=== PATIENT | male | born 2000 | race American Indian/Alaskan Native ===

== ENCOUNTER 2021-06-14 18:53 | Emergency (ER) | payer SELFPAY ==
[2021-06-14] MEDS ORDERED: ACETAMINOPHEN 500 MG TAB PO ONE (19:16)
[2021-06-14] MEDS ORDERED: dexAMETHasone 20 MG/5 ML VIAL IM ONE (21:14)
[2021-06-14] MEDS ORDERED: AMOXICILLIN/K CLAV 875/125MG TAB PO ONE (21:14)
--- NOTE | 2021-06-14 21:24 | Emergency Department Report ---
ED General Adult HPI - General Chief complaint: Sore Throat Stated complaint: SWOLLEN TONSILS Time Seen by Provider: 06/14/21 21:11 Source: patient Mode of arrival: Ambulatory Limitations: No Limitations - History of Present Illness Initial comments: Patient 21-year-old male who presents with sore throat x1 week now with fever sinus pain and pressure. Pain is described as 5/10 burning exacerbated by swallowing pain relieved by nothing tried. Patient is swallowing and tolerating p.o. There is no stridor or wheezing. Severity scale (0 -10): 3 - Related Data Previous Rx's Medication Instructions Recorded Last Taken Type Amoxicillin/Potassium Clav 1 each PO BID 7 Days #14 tablet 06/14/21 Unknown Rx [Augmentin 875-125 Tablet] Benzocaine/Mentho [Cepacol X 1 each MM Q4H PRN #3 packet 06/14/21 Unknown Rx Strength] Ibuprofen [Motrin 800 MG tab] 800 mg PO Q8HR PRN #30 tablet 06/14/21 Unknown Rx dexAMETHasone [Decadron] 4 mg PO Q12H 5 Days #10 tablet 06/14/21 Unknown Rx Allergies Allergy/AdvReac Type Severity Reaction Status Date / Time No Known Allergies Allergy Verified 06/14/21 21:12 ED Review of Systems ROS: Stated complaint: SWOLLEN TONSILS Other details as noted in HPI Constitutional: chills, fever, malaise Eyes: denies: eye pain, eye discharge, vision change ENT: throat pain, congestion. denies: ear pain Respiratory: denies: cough, shortness of breath, wheezing Cardiovascular: denies: chest pain, palpitations Endocrine: no symptoms reported Gastrointestinal: as per HPI. denies: abdominal pain, nausea, vomiting Genitourinary: denies: urgency, dysuria Musculoskeletal: denies: back pain, joint swelling, arthralgia Skin: denies: rash, lesions Neurological: denies: headache, weakness, paresthesias Psychiatric: denies: anxiety, depression Hematological/Lymphatic: denies: easy bleeding, easy bruising ED Past Medical Hx - Past Medical History Previous Medical History?: No - Surgical History Past Surgical History?: No - Medications Home Medications: Home Medications Medication Instructions Recorded Confirmed Last Taken Type Amoxicillin/Potassium Clav 1 each PO BID 7 Days #14 tablet 06/14/21 Unknown Rx [Augmentin 875-125 Tablet] Benzocaine/Mentho [Cepacol X 1 each MM Q4H PRN #3 packet 06/14/21 Unknown Rx Strength] Ibuprofen [Motrin 800 MG tab] 800 mg PO Q8HR PRN #30 tablet 06/14/21 Unknown Rx dexAMETHasone [Decadron] 4 mg PO Q12H 5 Days #10 tablet 06/14/21 Unknown Rx ED Physical Exam - General Limitations: No Limitations General appearance: alert, in no apparent distress - Head Head exam: Present: atraumatic, normocephalic - Eye Eye exam: Present: PERRL, EOMI. Absent: conjunctival injection, nystagmus Pupils: Present: normal accommodation - ENT ENT exam: Present: mucous membranes moist - Expanded ENT Exam Expanded Ear exam: Present: normal external inspection TM/Canal exam: Erythema: Right TM, Left TM Mouth exam: Absent: trismus Throat exam: Positive: tonsillar erythema, tonsillomegaly, tonsillar exudate, other (Uvula remains midline there is no peritonsillar abscess.). Negative: R peritonsillar mass, L peritonsillar mass - Neck Neck exam: Present: normal inspection, full ROM, lymphadenopathy. Absent: tenderness, meningismus, thyromegaly - Respiratory Respiratory exam: Present: normal lung sounds bilaterally. Absent: respiratory distress, wheezes, stridor, chest wall tenderness - Cardiovascular Cardiovascular Exam: Present: regular rate, normal rhythm, normal heart sounds. Absent: systolic murmur, diastolic murmur, rubs, gallop - GI/Abdominal GI/Abdominal exam: Present: soft, normal bowel sounds. Absent: distended, tenderness, bruit, hernia - Rectal Rectal exam: Present: deferred - Extremities Exam Extremities exam: Present: normal inspection, full ROM. Absent: tenderness - Back Exam Back exam: Present: normal inspection, full ROM. Absent: CVA tenderness (R), CVA tenderness (L) - Neurological Exam Neurological exam: Present: alert, oriented X3, CN II-XII intact, normal gait - Psychiatric Psychiatric exam: Present: normal affect, normal mood - Skin Skin exam: Present: warm, dry, intact, normal color. Absent: rash ED Course Vital Signs 06/14/21 19:14 Temperature 102.9 F H Pulse Rate 114 H Respiratory 18 Rate Blood Pressure 124/68 O2 Sat by Pulse 100 Oximetry ED Medical Decision Making - Medical Decision Making Patient advises he can no longer wait. However exam is consistent with sinusitis and pharyngitis with exudate. Airway is patent there is no stridor, there is no peritonsillar abscess plan DC to home with prescriptions. Follow-up with primary care doctor in 2 to 3 days. Return to emergency should symptoms worsen. Patient verbalized agreement and understanding with discharge plan. Patient DC'd home in stable condition at this time. Patient is tolerating p.o. intake at this time O2 sat is 99% on room air. Fever is improved. Critical care attestation.: If time is entered above; I have spent that time in minutes in the direct care of this critically ill patient, excluding procedure time. ED Disposition Clinical Impression: Sinusitis Qualifiers: Sinusitis location: maxillary Chronicity: acute Recurrence: non-recurrent Qualified Code(s): J01.00 - Acute maxillary sinusitis, unspecified Pharyngitis Qualifiers: Pharyngitis/tonsillitis etiology: unspecified etiology Qualified Code(s): J02.9 - Acute pharyngitis, unspecified Disposition: 01 HOME / SELF CARE / HOMELESS Is pt being admited?: No Does the pt Need Aspirin: No Condition: Stable Instructions: Sinusitis, Adult, [id number], Sore Throat, [id number] Additional Instructions: Take medications as prescribed, hydrate as directed, follow-up with your doctor in 2 to 3 days. Return to emergency should symptoms worsen. Prescriptions: Amoxicillin/Potassium Clav [Augmentin 875-125 Tablet] 1 each PO BID 7 Days #14 tablet Benzocaine/Mentho [Cepacol X Strength] 1 each MM Q4H PRN #3 packet PRN Reason: Throat Pain dexAMETHasone [Decadron] 4 mg PO Q12H 5 Days #10 tablet Ibuprofen [Motrin 800 MG tab] 800 mg PO Q8HR PRN #30 tablet PRN Reason: pain fever Referrals: PRIMARY CAREMD [Primary Care Provider] - 3-5 Days TEJA SANTORO MD [Staff Physician] - 3-5 Days Forms: Work/School Release Form(ED) Time of Disposition: 21:58
[2021-06-14 22:24] VITALS: BP 103/72
== END 2021-06-14 22:24 | disposition home or self-care (01) ==
LOC: ED 18:53
DX: J32.9 Chronic sinusitis, unspecified (principal); J02.9 Acute pharyngitis, unspecified; Z79.899 Other long term (current) drug therapy
CPT/HCPCS: 96372; 99282; J1100

== ENCOUNTER 2021-06-28 12:01 | Emergency (ER) | payer SELFPAY ==
--- NOTE | 2021-06-28 13:42 | Emergency Department Report ---
ED General Adult HPI - General Chief complaint: Sore Throat Stated complaint: SORE THROAT Time Seen by Provider: 06/28/21 13:15 Source: patient Mode of arrival: Ambulatory Limitations: No Limitations - History of Present Illness Initial comments: 21-year-old -Cong[place] male presents to the emergency room complaining of lymph nodes being enlarged the last few days. Patient states he was recently seen here June 14, 2021 for sinus infection and was placed on Augmentin dexamethasone and ibuprofen. Patient states he completed the medications and symptoms have improved. He denies any sore throat no difficulty swallowing no fever no chills. He is unvaccinated and has not recently tested for Covid. He denies any sore throat at this time does not have a primary care provider at this time. Patient denies any pain at this time. Onset/Timin -: days(s) Location: neck Severity scale (0 -10): 1 Consistency: constant Improves with: none Worsens with: none Associated Symptoms: denies other symptoms Treatments Prior to Arrival: none - Related Data Previous Rx's Medication Instructions Recorded Last Taken Type Amoxicillin/Potassium Clav 1 each PO BID 7 Days #14 tablet 06/14/21 Unknown Rx [Augmentin 875-125 Tablet] Benzocaine/Mentho [Cepacol X 1 each MM Q4H PRN #3 packet 06/14/21 Unknown Rx Strength] Ibuprofen [Motrin 800 MG tab] 800 mg PO Q8HR PRN #30 tablet 06/14/21 Unknown Rx dexAMETHasone [Decadron] 4 mg PO Q12H 5 Days #10 tablet 06/14/21 Unknown Rx Allergies Allergy/AdvReac Type Severity Reaction Status Date / Time No Known Allergies Allergy Verified 06/14/21 21:12 ED Review of Systems ROS: Stated complaint: SORE THROAT Other details as noted in HPI Comment: All other systems reviewed and negative ED Past Medical Hx - Medications Home Medications: Home Medications Medication Instructions Recorded Confirmed Last Taken Type Amoxicillin/Potassium Clav 1 each PO BID 7 Days #14 tablet 06/14/21 Unknown Rx [Augmentin 875-125 Tablet] Benzocaine/Mentho [Cepacol X 1 each MM Q4H PRN #3 packet 06/14/21 Unknown Rx Strength] Ibuprofen [Motrin 800 MG tab] 800 mg PO Q8HR PRN #30 tablet 06/14/21 Unknown Rx dexAMETHasone [Decadron] 4 mg PO Q12H 5 Days #10 tablet 06/14/21 Unknown Rx ED Physical Exam - General Limitations: No Limitations General appearance: alert, in no apparent distress - Head Head exam: Present: atraumatic, normocephalic - Eye Eye exam: Present: normal appearance - ENT ENT exam: Present: normal orophraynx, mucous membranes moist - Neck Neck exam: Present: full ROM, lymphadenopathy. Absent: tenderness - Respiratory Respiratory exam: Present: normal lung sounds bilaterally. Absent: accessory muscle use - Cardiovascular Cardiovascular Exam: Present: regular rate - GI/Abdominal GI/Abdominal exam: Present: soft. Absent: distended, tenderness - Extremities Exam Extremities exam: Present: normal inspection, full ROM - Back Exam Back exam: Present: normal inspection - Neurological Exam Neurological exam: Present: alert, oriented X3, normal gait - Psychiatric Psychiatric exam: Present: normal affect, normal mood - Skin Skin exam: Present: warm, dry, intact, normal color. Absent: rash ED Medical Decision Making - Medical Decision Making 21-year-old -[place] male presents to the emergency room complaining of lymph nodes being enlarged the last few days. Patient states he was recently seen here June 14, 2021 for sinus infection and was placed on Augmentin dexamethasone and ibuprofen. Patient states he completed the medications and symptoms have improved. He denies any sore throat no difficulty swallowing no fever no chills. He is unvaccinated and has not recently tested for Covid. He denies any sore throat at this time does not have a primary care provider at this time. Patient denies any pain at this time. Discussed with patient that he should follow-up with a primary care provider. Instructed patient to get Covid tested. Explained to patient that lymph nodes enlargement can be cozier been exposed to a virus or bacteria in his part of your immune system that is fighting. Discussed with patient if he has any further concerns he can follow-up with a primary care provider I have listed 1 below for him in his discharge summary. Patient is afebrile vital signs are stable. Patient is nontoxic in appearance. Critical care attestation.: If time is entered above; I have spent that time in minutes in the direct care of this critically ill patient, excluding procedure time. ED Disposition Clinical Impression: Lymphadenopathy of left cervical region Disposition: HOME / SELF CARE / HOMELESS Is pt being admited?: No Does the pt Need Aspirin: No Condition: Stable Instructions: Lymphadenopathy Additional Instructions: Recommend to follow-up with a primary care provider if any further concerns. Also recommend getting Covid tested. As you are not vaccinated. Referrals: BRENTON ADAMS MD [Staff Physician] - 3-5 Days Forms: Work/School Release Form(ED) Time of Disposition: 13:42
[2021-06-28 14:06] VITALS: BP 122/65
== END 2021-06-28 14:26 | disposition home or self-care (01) ==
LOC: ED 12:01
DX: R59.1 Generalized enlarged lymph nodes (principal)
CPT/HCPCS: 99282

== ENCOUNTER 2021-12-03 09:40 | Emergency (ER) | payer SELFPAY ==
[2021-12-03] MEDS ORDERED: LIDOCAINE (1%) 10 MG/1 ML VIAL 20 ML MDV INFILTRATI ONE (11:36)
--- NOTE | 2021-12-03 12:09 | Emergency Department Report ---
- General Chief complaint: Skin/Abscess/Foreign Body Stated complaint: BOIL ON LT THIGH Source: patient Mode of arrival: Ambulatory Limitations: No Limitations - History of Present Illness Initial comments: 21-year-old male presents presents to the ED with abscess to the left inner groin area x5 days. Patient states that he had a similar abscess to the left area in the past. He states that pain is a current 5 out of 10. Patient states that he has been using warm compress to try to expel but unsuccessful. Patient denies any fever or chills. Patient is ambulatory. No acute distress. No ill appearance. MD complaint: abscess/boil Onset/Timin -: days(s) Tetanus Up to Date: yes Severity: moderate Severity scale (0 -10): 5 Quality: aching Consistency: intermittent Improves with: none Worsens with: none Associated symptoms: denies other symptoms - Related Data Previous Rx's Medication Instructions Recorded Last Taken Type Amoxicillin/Potassium Clav 1 each PO BID 7 Days #14 tablet 06/14/21 Unknown Rx [Augmentin 875-125 Tablet] Benzocaine/Mentho [Cepacol X 1 each MM Q4H PRN #3 packet 06/14/21 Unknown Rx Strength] Ibuprofen [Motrin 800 MG tab] 800 mg PO Q8HR PRN #30 tablet 06/14/21 Unknown Rx dexAMETHasone [Decadron] 4 mg PO Q12H 5 Days #10 tablet 06/14/21 Unknown Rx Ibuprofen [Motrin] 800 mg PO Q8HR PRN 15 Days #30 12/03/21 Unknown Rx tablet Sulfamethoxazole/Trimethoprim 1 each PO BID 10 Days #20 tab 12/03/21 Unknown Rx [Bactrim DS TAB] Allergies Allergy/AdvReac Type Severity Reaction Status Date / Time No Known Allergies Allergy Verified 06/14/21 21:12 Abscess Boil HPI - HPI Chief Complaint: Skin/Abscess/Foreign Body Stated Complaint: BOIL ON LT THIGH Home Medications: Previous Rx's Medication Instructions Recorded Last Taken Type Amoxicillin/Potassium Clav 1 each PO BID 7 Days #14 tablet 06/14/21 Unknown Rx [Augmentin 875-125 Tablet] Benzocaine/Mentho [Cepacol X 1 each MM Q4H PRN #3 packet 06/14/21 Unknown Rx Strength] Ibuprofen [Motrin 800 MG tab] 800 mg PO Q8HR PRN #30 tablet 06/14/21 Unknown Rx dexAMETHasone [Decadron] 4 mg PO Q12H 5 Days #10 tablet 06/14/21 Unknown Rx Ibuprofen [Motrin] 800 mg PO Q8HR PRN 15 Days #30 12/03/21 Unknown Rx tablet Sulfamethoxazole/Trimethoprim 1 each PO BID 10 Days #20 tab 12/03/21 Unknown Rx [Bactrim DS TAB] Allergies/Adverse Reactions: Allergies Allergy/AdvReac Type Severity Reaction Status Date / Time No Known Allergies Allergy Verified 06/14/21 21:12 ED Review of Systems ROS: Stated complaint: BOIL ON LT THIGH Other details as noted in HPI Constitutional: denies: chills, fever Eyes: denies: eye pain, eye discharge, vision change ENT: denies: ear pain, throat pain Respiratory: denies: cough, shortness of breath, wheezing Cardiovascular: denies: chest pain, palpitations Endocrine: no symptoms reported Gastrointestinal: denies: abdominal pain, nausea, diarrhea Genitourinary: denies: urgency, dysuria Musculoskeletal: denies: back pain, joint swelling, arthralgia Skin: rash, lesions Neurological: denies: headache, weakness, paresthesias Psychiatric: denies: anxiety, depression Hematological/Lymphatic: denies: easy bleeding, easy bruising ED Past Medical Hx - Past Medical History Previous Medical History?: No - Surgical History Past Surgical History?: No - Social History Smoking Status: Never Smoker Substance Use Type: None - Medications Home Medications: Home Medications Medication Instructions Recorded Confirmed Last Taken Type Amoxicillin/Potassium Clav 1 each PO BID 7 Days #14 tablet 06/14/21 Unknown Rx [Augmentin 875-125 Tablet] Benzocaine/Mentho [Cepacol X 1 each MM Q4H PRN #3 packet 06/14/21 Unknown Rx Strength] Ibuprofen [Motrin 800 MG tab] 800 mg PO Q8HR PRN #30 tablet 06/14/21 Unknown Rx dexAMETHasone [Decadron] 4 mg PO Q12H 5 Days #10 tablet 06/14/21 Unknown Rx Ibuprofen [Motrin] 800 mg PO Q8HR PRN 15 Days #30 12/03/21 Unknown Rx tablet Sulfamethoxazole/Trimethoprim 1 each PO BID 10 Days #20 tab 12/03/21 Unknown Rx [Bactrim DS TAB] ED Physical Exam - General Limitations: No Limitations General appearance: alert, in no apparent distress - Head Head exam: Present: atraumatic, normocephalic - Eye Eye exam: Present: normal appearance - ENT ENT exam: Present: mucous membranes moist - Neck Neck exam: Present: normal inspection - Respiratory Respiratory exam: Present: normal lung sounds bilaterally. Absent: respiratory distress - Cardiovascular Cardiovascular Exam: Present: regular rate, normal rhythm. Absent: systolic murmur, diastolic murmur, rubs, gallop - GI/Abdominal GI/Abdominal exam: Present: soft, normal bowel sounds - Rectal Rectal exam: Present: deferred - Extremities Exam Extremities exam: Present: normal inspection - Back Exam Back exam: Present: normal inspection - Neurological Exam Neurological exam: Present: alert, oriented X3 - Psychiatric Psychiatric exam: Present: normal affect, normal mood - Skin Skin exam: Present: warm, dry, intact, normal color, rash, other (tender nodule note to left groin with surrond ertheyma to surrounding tissue) ED Course Vital Signs 12/03/21 12/03/21 09:47 12:53 Temperature 98.9 F 98.7 F Pulse Rate 91 H 75 Respiratory 16 Rate Blood Pressure 116/66 Blood Pressure 120/59 [Left] O2 Sat by Pulse 96 Oximetry - I & D Left Groin Type of Procedure: Simple Site: left groin area Blade Size: 11 I & D Procedure: betadine prep Progress: And linear incision along the local skin line was made and the purulent material expressed. The abscess was explored thoroughly and sequestered pocket were opened. Bleeding was minimal. Dressing was applied. ED Medical Decision Making - Medical Decision Making 21-year-old male presents presents to the ED with abscess to the left inner groin area x5 days. Patient states that he had a similar abscess to the left area in the past. He states that pain is a current 5 out of 10. Patient states that he has been using warm compress to try to expel but unsuccessful. Patient denies any fever or chills. Patient is ambulatory. No acute distress. No ill appearance. Physical examination patient has tender nodule noted to the left inner groin area with moderate fluctuant .I&D of the abscess to the left groin. patient tolerated procedure well Rechecked the patient is resting quietly quietly and comfortable and feeling better. I discussed the results of diagnostic study, my clinical impression and the plan for further treatment with the patient. Patient agrees with plan and discharge at this present time. All question addressed. I have given the patient instruction regarding a diagnosis ,expectation ,follow- up and return precaution. I explained to the patient that emergent condition may arise and to return to the ED for new worsen and any new persisting condition. I have explained the importance of following up with the primary care physician or referral physician listed below has instructed. The patient verbalized understanding of discharge instruction. Critical care attestation.: If time is entered above; I have spent that time in minutes in the direct care of this critically ill patient, excluding procedure time. ED Disposition Clinical Impression: Abscess Disposition: 01 HOME / SELF CARE / HOMELESS Is pt being admited?: No Does the pt Need Aspirin: No Condition: Stable Instructions: Skin Abscess, [id number] Additional Instructions: Take medication as prescribed Return to ED for any worsening symptom Prescriptions: Sulfamethoxazole/Trimethoprim [Bactrim DS TAB] 1 each PO BID 10 Days #20 tab Ibuprofen [Motrin] 800 mg PO Q8HR PRN 15 Days #30 tablet PRN Reason: Pain, Moderate (4-6) Referrals: PRIMARY CARE, [Primary Care Provider] - 3-5 Days [facility] [Provider Group] - 3-5 Days Forms: Work/School Release Form(ED) Time of Disposition: 12:18
[2021-12-03 12:55] VITALS: BP 120/59
== END 2021-12-03 12:55 | disposition home or self-care (01) ==
LOC: ED 09:40
DX: L02.214 Cutaneous abscess of groin (principal)
CPT/HCPCS: 99282